=== PATIENT | female | born 1970 | race Caucasian/White ===

== ENCOUNTER 2016-12-18 04:44 | Inpatient (IN) ==
[2016-12-12 10:27] LABS: HEMATOCRIT 41.4 % (37.0-47.0); HEMOGLOBIN 13.6 g/dL (12.0-16.0); MCHC 32.9 g/dL (33-37); MCV 85.4 FL (81-99); MPV 9.8 FL (7.4-10.4); RBC 4.85 XMIL (4.2-5.4)
[2016-12-12 11:09] LABS: AGAP 14; BUN 12 mg/dL (8-22); CALCIUM 8.9 mg/dL (8.8-10.2); CHLORIDE 104 mmol/L (98-107); COSMO 283; SODIUM 140 mmol/L (136-145); TCO2 22 mmol/L (25-35)
--- NOTE | 2016-12-12 16:25 | EKG Report ---
Test Performed on : 12/12/2016 10:02:41 AM Test Reason : PAT Blood Pressure : / mmHG Vent. Rate : 058 BPM Atrial Rate : 058 BPM P-R Int : 180 ms QRS Dur : 100 ms QT Int : 438 ms P-R-T Axes : 043 011 033 degrees QTc Int : 429 ms Sinus bradycardia. Incomplete right bundle branch block Borderline ECG When compared with ECG of 09-OCT-2016 21:40, No significant change was found Confirmed by Joy CHRISTINE, Jez Guerra ([id number]) on 12/12/2016 8:00:42 PM
[2016-12-18] MEDS ORDERED: LR 1,000 ML ONE ×2 (05:31→10:54)
[2016-12-18] MEDS ORDERED: PEPCID ONE (05:31)
[2016-12-18] MEDS ORDERED: REGLAN ONE (05:31)
[2016-12-18] MEDS ORDERED: ENTEREG ONE (06:03)
[2016-12-18] MEDS ORDERED: MARCAINE 0.25% PF/EPI 1:200,000 ONE (06:11)
[2016-12-18] MEDS ORDERED: XYLOCAINE 1% ONE (06:11)
[2016-12-18] MEDS: INVANZ 1 GM/NS 1 GM/50 ML IVPB ONE (07:13)
[2016-12-18 08:23] LABS: URINE SOURCE CATH
[2016-12-18 08:37] LABS: BILIRUBIN URINE NEGATIVE (NEGATIVE); BLOOD URINE NEGATIVE (NEGATIVE); CLARITY CLEAR (CLEAR); COLOR YELLOW; GLUCOSE URINE NEGATIVE (NEGATIVE); LEUKOCYTES URINE TRACE (NEGATIVE); NITRITE URINE NEGATIVE (NEGATIVE); PH URINE 5.5; PROTEIN URINE NEGATIVE (NEGATIVE); SP GRAVITY URINE >= 1.030; UROBILINOGEN URINE 0.2 EU/dL (0.2-1.0)
[2016-12-18 08:41] LABS: URINE CAST NONE SEEN /LPF; URINE CULTURE NEEDED? YES; URINE EPITHELIAL CELLS <10 /HPF (<10); URINE RBC <10 /HPF (<10); URINE WBC <10 /HPF (<10)
[2016-12-18 08:42] LABS: URINE CRYSTAL NONE SEEN /HPF
[2016-12-18] MEDS: LR 1,000 ML ONE ×2 (09:25→09:28)
[2016-12-18] MEDS ORDERED: VERSED ONE (10:41)
[2016-12-18] MEDS ORDERED: FENTANYL ONE (10:42)
[2016-12-18] MEDS ORDERED: DIPRIVAN 1% ONE (10:42)
[2016-12-18] MEDS ORDERED: NEOSTIGMINE ONE (10:59)
[2016-12-18] MEDS ORDERED: ZOFRAN ONE (10:59)
[2016-12-18] MEDS ORDERED: NORCURON ONE (11:00)
[2016-12-18] MEDS ORDERED: DECADRON ONE (11:00)
[2016-12-18] MEDS ORDERED: EPHEDRINE ONE (11:00)
[2016-12-18] MEDS ORDERED: ANESTHESIA PB SET 88 IN 5742 ONE (11:00)
[2016-12-18] MEDS ORDERED: LR 2,000 ML ONE (11:00)
[2016-12-18] MEDS ORDERED: XYLOCAINE-MPF 2% ONE (11:00)
[2016-12-18] MEDS ORDERED: ROBINUL ONE (11:00)
[2016-12-18] MEDS ORDERED: QUELICIN (DOSE) ONE (11:00)
[2016-12-18] MEDS ORDERED: EXTENSION SET 32 IN 4522 ONE (11:00)
[2016-12-18] MEDS ORDERED: OFIRMEV 1000 MG/ISOTONIC SOLN 1,000 MG/100 ML BOTTLE ONE (11:00)
[2016-12-18] MEDS: DILAUDID ONE ×6 (11:17→12:52)
--- NOTE | 2016-12-18 11:29 | Diag Imaging Result Document ---
PROCEDURE NAME: CHEST-1 VIEW - 12/18/2016 SINGLE FRONTAL RADIOGRAPH OF THE CHEST: COMPARISON: 10/09/2016. FINDINGS: There is a newly placed right subclavian line. The tip projects over the lower SVC near the level of the atriocaval junction in the expected position. There is no evidence of pneumothorax post placement. There are bilateral perihilar infiltrates suggesting edema +/- pneumonia. There is no definite pleural fluid collection. Cardiac silhouette is unremarkable. IMPRESSION: 1. Recent placement of a right central line as described with no evidence of pneumothorax post placement. 2. Bilateral perihilar infiltrates as described.
--- NOTE | 2016-12-18 11:45 | OPERATIVE NOTE ---
PROCEDURE DATE: 12/18/2016 PREOPERATIVE DIAGNOSIS: Recurrent diverticulitis. POSTOPERATIVE DIAGNOSIS: Recurrent diverticulitis. PROCEDURES PERFORMED: 1. Hand-assisted laparoscopic sigmoid colectomy. 2. Mobilization of splenic flexure. SURGEON: Dr. Mao Cabezas. CANCER PROGRAM COORDINATOR: Dr. Jeff Hutson. COMPLICATIONS: None. ESTIMATED BLOOD LOSS: 50 mL. SPECIMENS: Distal descending sigmoid colon. INDICATIONS: This is a 46-year-old female who has had numerous episodes of diverticulitis, has never had a perforation but has resulted in multiple admissions requiring IV antibiotics, given multiple medication allergies, and who has never really gotten over her last episode as far as pain and intermittent low-grade fevers at home. She had a colonoscopy that ruled out a neoplastic process, but did show severe inflammation and diverticulitis and diverticulosis , worse in the sigmoid and descending colon. She also had a barium enema to rule out stricturing disease. A sigmoid colectomy was indicated for symptom relief. OPERATIVE FINDINGS: There was diverticulosis throughout the sigmoid and descending colon. This was most of the localized in the distal descending. The proximal descending was relatively normal appearing with some scattered diverticula throughout. There was a very high splenic flexure intimately adherent to the spleen. There was no pus, no evidence perforation. OPERATIVE NOTE: Risks, benefits, and alternatives were discussed with the patient, including the possibility of a temporary or permanent colostomy. She understood and consented to the procedure. We also discussed the possibility of injury to retroperitoneal structures, given the dense inflammatory state. She understood that these were all risks and was willing to proceed. In the preoperative area, surgery to be performed was confirmed. She was taken to the operating room, placed in the supine position, and general anesthesia induced without complication. All bony prominence were padded. She received preincisional antibiotics and she also had an antibiotic and magnesium citrate bowel prep preoperatively. After induction of adequate anesthesia, we placed her in lithotomy position, tucked both arms, , and there was no pressure at her peroneal nerve locations. A Leach catheter was placed. She was secured to the bed with silk tape and her abdomen was prepared with chlorhexidine solution and draped in usual fashion. A time-out was performed and prior to this we did do a rectal examination to be sure there was no distal impacted stool. There was not. There was some liquid stool noted. After this , we made a 7.5 cm lower midline incision approximately midway between the pubic symphysis and the umbilicus, and dissected down to the fascia with electrocautery, entering the fascia in controlled fashion, and placed a GelPort hand port. We insufflated the abdomen through this and inspected. There were some omental adhesions to the lower midline, but we dissected these down bluntly. We then placed a 10 mm trocar in the suprapubic location in the supraumbilical location in the midline and a 5 mm port below the GelPort above the pubic symphysis, above the reflection the bladder. We also placed a 5 mm trocar in the left lower quadrant lateral to the epigastrics to facilitate most cephalad mobilization of the splenic flexure Using an angled scope and the LigaSure device, we mobilized the descending colon along the white line of Toldt, protecting the retroperitoneal structures. It was quite inflamed in several locations with some obliteration of normal planes, but we were able to safely do this. We continued this up to the splenic flexure, excising this down. It was a very high splenic flexure and the colon abutted the splenic hilum and even the tail of pancreas, but we protected all these structures, including the capsule of the spleen, and did this successfully, and were able to mobilize this widely. We carried our distal dissection down to the level of the sacral promontory and at this point completed our laparoscopic portion of the operation. We connected the 5 mm trocar above the suprapubic to the GelPort and placed a large Karthik wound protector. There were some inflammatory adhesions anteriorly. We took these down, protecting the bladder, and right laterally we identified the ureter and protected this, as we did on the left. These were well out of the field of dissection and she had a quite redundant sigmoid. We picked a normal appearing area of proximal mid rectum and, using the TA 60 blue load stapler, divided this here. Using the LigaSure device, we took the mesocolon back to an area of normal-appearing colon, cleared this and, using a pursestring device, we applied a pursestring and divided it, removing the specimen with Wilcox scissors. We placed an anvil after sizing the distal rectum to confirm that a 28 mm sizer would go. We placed a 28 mm anvil, tied this in a pursestring fashion, and cleaned off the epiploic fat around this back to healthy colon. There was a diverticulum that we incorporated into the planned staple line. At this point, Dr. Hutson went below. He passed the EEA stapler up without difficulty to the proximal rectal margin, advanced the spike posterior to the staple line, and we connected the two, ensuring that the colon was not twisted. There was no tension. It was a very floppy anastomosis. We fired this and there were 2 complete donuts. We did a leak test with the rigid proctoscope and there was no leak noted. We placed the staple line down in the pelvis in a natural neutral position. There was again no tension whatsoever on this anastomosis and both staple lines were bleeding prior to creating it, confirming good blood supply. We noted hemostasis. We placed omentum over this, irrigated the abdomen, and there was no other evidence of incidental injury to any of the surrounding structures. We closed the suprapubic trocar site with 0 Vicryl suture and then closed the fascia with a #1 single-stranded PDS suture, and irrigated the superficial wound. All this was done after changing our gloves, and during all the colon transection and anastomosis, we protected the surrounding structures and there was no spillage of stool in this prepared colon. After irrigating the superficial wound, we closed the lower midline incision with evgeny and the other port sites with 4-0 Monocryl. . At the conclusion of the case, all sponge and instrument counts were correct x2. She tolerated it well and was transferred to recovery. I spoke with the family. Dr. Hutson was present from the beginning to the end of the case and facilitated the retraction, exposure of anatomy, and creation of end-to-end stapled anastomosis. He was necessary, given the inflammatory state, the abnormal anatomy, and her difficult body habitus, given her morbid obesity. cc: Mao Cabezas MD [facility]
[2016-12-18] MEDS: ZOFRAN IV PRN (13:39)
[2016-12-18] MEDS: LR 1,000 ML IV SCH (13:42)
[2016-12-18] MEDS: OFIRMEV 1000 MG/ISOTONIC SOLN 1,000 MG/100 ML BOTTLE IV SCH ×2 (14:28→21:03)
[2016-12-18] MEDS ORDERED: ZOFRAN IV ONE (16:22)
[2016-12-18] MEDS: ULTRAM PO PRN (18:35)
[2016-12-18] MEDS ORDERED: DILAUDID IV ONE (20:08)
[2016-12-18] MEDS ORDERED: TRANSDERM-SCOP TD ONE (20:08)
[2016-12-18] MEDS: PERIDEX MT SCH (21:04)
[2016-12-18] MEDS: MAG-OX PO SCH (21:04)
[2016-12-19] MEDS: ZOFRAN IV PRN ×3 (01:40→15:05)
[2016-12-19] MEDS: ULTRAM PO PRN ×4 (01:40→22:35)
[2016-12-19] MEDS: LR 1,000 ML IV SCH ×4 (01:40→15:48)
[2016-12-19] MEDS: OFIRMEV 1000 MG/ISOTONIC SOLN 1,000 MG/100 ML BOTTLE IV SCH ×4 (01:40→22:32)
[2016-12-19] MEDS: PROTONIX PO SCH (06:31)
[2016-12-19 06:34] LABS: HEMATOCRIT 37.2 % (37.0-47.0); HEMOGLOBIN 11.8 g/dL (12.0-16.0); MCH 27.8 PG (27-31); MCHC 31.7 g/dL (33-37); MCV 87.5 FL (81-99); MPV 9.8 FL (7.4-10.4); RBC 4.25 XMIL (4.2-5.4)
[2016-12-19 07:02] LABS: AGAP 12; BUN 6 mg/dL (8-22); CALCIUM 8.4 mg/dL (8.8-10.2); CHLORIDE 101 mmol/L (98-107); COSMO 275; MAGNESIUM 2.1 mg/dL (1.5-2.7); POTASSIUM 4.3 mmol/L (3.5-5.1); SODIUM 139 mmol/L (136-145); TCO2 26 mmol/L (25-35)
--- NOTE | 2016-12-19 08:12 | PROGRESS NOTE ---
DATE: 12/19/2016 SUBJECTIVE: Nausea overnight, but improved with scopolamine patch. Some pain but controlled for the most part. OBJECTIVE: No fevers. No tachycardia. Blood pressure 121/64, oxygen saturation 98% on 2 L nasal cannula.General: She is alert, in no acute distress. Cardiovascular: Normal rate, regular rhythm. Abdomen: Dressings are clean, dry, and intact. She is soft and appropriately tender. LABORATORIES: Reviewed her labs. White count mildly elevated at 16, hematocrit is 37, platelets 292,000, creatinine 0.6, potassium 4.3, magnesium 2.1. ASSESSMENT/PLAN: A 46-year-old female, status post laparoscopic sigmoid colectomy for diverticulitis. She is doing well. Nausea is better with Zofran and scopolamine patch. Pain is controlled with ofirmiv and Ultram. Her Leach is out. We will continue with Lovenox for prophylaxis. Keep her fluids going given the nausea and limited oral intake, but we will advance her diet as she tolerates today. Encourage out of bed and to chair for the majority of the day and ambulating in the halls. She is on PPI for ulcer prophylaxis and Lovenox. cc: Mao Cabezas MD [facility]
[2016-12-19] MEDS: LOVENOX SUBQ SCH (09:05)
[2016-12-19] MEDS: MAG-OX PO SCH ×2 (09:06→22:33)
[2016-12-19] MEDS: PERIDEX MT SCH ×2 (09:06→22:33)
[2016-12-20] MEDS: OFIRMEV 1000 MG/ISOTONIC SOLN 1,000 MG/100 ML BOTTLE IV SCH ×4 (04:07→20:12)
[2016-12-20] MEDS: ULTRAM PO PRN ×3 (05:57→20:12)
[2016-12-20] MEDS: PROTONIX PO SCH (06:00)
[2016-12-20] MEDS: LR 1,000 ML IV SCH (06:01)
[2016-12-20] MEDS: PERIDEX MT SCH ×2 (09:33→20:12)
[2016-12-20] MEDS: MAG-OX PO SCH ×2 (09:33→20:12)
[2016-12-20] MEDS: LOVENOX SUBQ SCH (09:33)
--- NOTE | 2016-12-20 10:07 | PROGRESS NOTE ---
DATE: 12/20/2016 SUBJECTIVE: She feels well. She is passing some gas. Pain is improving. She sat in a chair yesterday. Is ambulating around the room and voiding. OBJECTIVE: General: No fevers. No tachycardia. Vital Signs: Blood pressure 137/60, oxygen saturation 98%. General: She is alert and oriented. Cardiovascular: Normal rate and regular rhythm. Abdomen: Appropriately tender. Nondistended. Dressing is clean, dry, and intact. LABORATORY DATA: No new labs this morning. ASSESSMENT/PLAN: A 46-year-old female, status post laparoscopic-assisted sigmoid colectomy. She is doing well. She has had return of bowel function. We will advance her diet to soft today. She is still nauseated but this is improving and continue out of bed. I will stop her fluids. Keep the ofirmiv and Ultram going for pain. Possibly home tomorrow. cc: Mao Cabezas MD [facility]
[2016-12-20] MEDS: ZOFRAN IV PRN (21:21)
[2016-12-21] MEDS: OFIRMEV 1000 MG/ISOTONIC SOLN 1,000 MG/100 ML BOTTLE IV SCH (01:15)
[2016-12-21] MEDS: PROTONIX PO SCH (06:29)
[2016-12-21] MEDS: ULTRAM PO PRN (06:29)
[2016-12-21 07:28] VITALS: BP 127/68
[2016-12-21] MEDS: MAG-OX PO SCH (09:47)
[2016-12-21] MEDS: LOVENOX SUBQ SCH (09:47)
[2016-12-21] MEDS: PERIDEX MT SCH (09:48)
--- NOTE | 2016-12-21 09:53 | PROGRESS NOTE ---
DATE: 12/21/2016 SUBJECTIVE: She feels well. She is passing gas. She is tolerating small volumes of a regular diet with some nausea. OBJECTIVE: Vital signs: No fevers, no tachycardia. Blood pressures are normal at 127/68, oxygen saturation is in the low 90s on room air. Abdomen: Soft, appropriately tender. Incisions are all clean, dry, and intact. LABS: I reviewed her labs, nothing new today. ASSESSMENT AND PLAN: This is a 46-year-old female status post laparoscopic descending and sigmoid colectomy for recurrent diverticulitis. She is doing very well, tolerating minimal p.o., but she is tolerating this with bowel function. Pain control is reasonable with Ultram. PLAN: Will monitor p.o. today, this morning and at lunch, and if she tolerates this well, will plan for possible discharge later this evening, but will monitor her, as her nausea is a limiting factor here. cc: Mao Cabezas MD
--- NOTE | 2017-01-14 14:25 | DISCHARGE SUMMARY ---
ADMISSION DATE: 12/18/2016 DISCHARGE DATE: 12/21/2016 PREOPERATIVE DIAGNOSIS: Recurrent diverticulitis. POSTOP: Recurrent diverticulitis. PROCEDURE PERFORMED: Laparoscopically assisted sigmoid colectomy. HISTORY OF PRESENT ILLNESS: This is a 46-year-old female who has had numerous episodes recurrent diverticulitis none of which have been complicated by abscess or perforation but has been on prolonged course of IV antibiotics and with really incomplete resolution of her symptoms after her last episode. She is young and otherwise healthy and elective colectomy was indicated to prevent further complications and episodes of diverticulitis. HOSPITAL COURSE: She was admitted on the day of her surgery and was seen by anesthesia and cleared for above surgery. For details please see dictated operative note. Postoperatively she was admitted my service and was managed per the [facility] protocol and diet was advanced. She was maintained on IV Ofirmev and Ultram only for pain and she tolerated this well. She is ambulating, had return of bowel function on day 3, her diet was advanced and she is voiding without difficulty. She had a Leach catheter that was removed in appropriate postoperative course, on day of discharge her wounds were healing well and abdominal exam was benign. She is having normal bowel function. She is tolerating a diet. Ambulating with p.o. pain medicine alone was felt safe for discharge home. Follow up with me in the next 1-2 weeks. DISPOSITION: Home to self-care. DISCHARGE MEDICATIONS: She is given prescription for pain medicine, stool softer, Zofran and she can continue taking her home medications. DISCHARGE ACTIVITY: Avoid heavy lifting greater than 10 pounds. She is to call if she develops fevers, worsening abdominal pain, nausea, vomiting, or change in her bowel movements. DISCHARGE DIET: Discussed GI soft diet. cc: MD YAHAIRA Gorman
== END 2016-12-21 10:46 | disposition home or self-care (01) ==
LOC: SURHOLD 04:44 → 4N 13:30
PROVIDERS: ADMIT Surgery; ATTEND Surgery